=== PATIENT | male | born 1990 | race American Indian/Alaskan Native ===

== ENCOUNTER 2019-01-20 01:29 | Emergency (ER) | payer SELFPAY ==
[2019-01-20 03:44] VITALS: BP 162/114
[2019-01-20 05:03] LABS: Bilirubin,Urine NEG (Negative); Blood,Urine NEG (Negative); Color,Urine Yellow (Yellow); Hyaline Casts,Urine 1 /LPF; Mucus,Urine FEW /HPF; Protein,Urine <15 mg/dL mg/dL (Negative); Urobilinogen,Urine < 2.0 mg/dL (<2.0)
[2019-01-20] MEDS ORDERED: XYLOCAINE 1% MPF 5 mL INFILTRATI ONE (06:58)
[2019-01-20] MEDS ORDERED: ROCEPHIN IM ONE (06:58)
[2019-01-20] MEDS ORDERED: ZITHROMAX PO ONE (06:58)
--- NOTE | 2019-01-20 07:00 | Emergency Department Report ---
ED Male HPI - General Chief complaint: Urogenital-Male Stated complaint: POSS STD/BURNING/DISCHARGE Source: patient Mode of arrival: Ambulatory Limitations: No Limitations - History of Present Illness Initial comments: A 8-year-old -[place] male presents to the emergency room for burning with urination and yellow discharge from penis times one week. Patient states p ossible STD. Patient denies any fever or chills or nausea no vomiting has admitted to suprapubic pain when he urinates. He does admit to unprotected sex with women last 6 months to partners. Patient reports that his last HIV test was less than 6 months ago and negative. Patient has no past medical history except elevated blood pressure without diagnosis of hypertension. Patient denies taking any medications and reports is allergic to iodine. MD Complaint: penile discharge -: week(s) (1) Radiation: none Severity scale (0 -10): 4 Quality: burning Consistency: intermittent Improves with: none Worsens with: urination new sexual partner (unprotected intercourse) discharge, dysuria. denies: swelling, blood in urine, fever, nausea/vomiting, incontinence - Related Data Sexually active: Yes (women 2 partners unprotected) Previous Rx's Medication Instructions Recorded Last Taken Type ALBUTEROL Inhaler (OR & NICU) 2 puff IH QID PRN 30 Days 05/11/14 Unknown Rx [ProAir HFA Inhaler] inhalation Amoxicillin [Trimox CAP] 500 mg PO TID #30 capsule 05/11/14 Unknown Rx predniSONE [Deltasone] 15 mg PO .TAPER #21 tab 05/11/14 Unknown Rx Doxycycline [Vibramycin CAP] 100 mg PO Q12HR #10 capsule 01/20/19 Unknown Rx Allergies Allergy/AdvReac Type Severity Reaction Status Date / Time iodine Allergy Swelling Verified 01/20/19 01:51 shellfish derived Allergy Rash Verified 05/11/14 15:21 shrimp Allergy Shortness Uncoded 05/11/14 15:21 of Breath ED Review of Systems ROS: Stated complaint: POSS STD/BURNING/DISCHARGE Other details as noted in HPI Comment: All other systems reviewed and negative Constitutional: denies: chills, fever Eyes: denies: eye pain, eye discharge, vision change ENT: denies: ear pain, throat pain Genitourinary: dysuria, discharge ED Past Medical Hx - Past Medical History Previous Medical History?: Yes Hx Hypertension: Yes - Surgical History Past Surgical History?: Yes Additional Surgical History: [place] tooth removed - Social History Smoking Status: Current Every Day Smoker Substance Use Type: Alcohol - Medications Home Medications: Home Medications Medication Instructions Recorded Confirmed Last Taken Type ALBUTEROL Inhaler (OR & NICU) 2 puff IH QID PRN 30 Days 05/11/14 Unknown Rx [ProAir HFA Inhaler] inhalation Amoxicillin [Trimox CAP] 500 mg PO TID #30 capsule 05/11/14 Unknown Rx predniSONE [Deltasone] 15 mg PO .TAPER #21 tab 05/11/14 Unknown Rx Doxycycline [Vibramycin CAP] 100 mg PO Q12HR #10 capsule 01/20/19 Unknown Rx ED Physical Exam - General Limitations: No Limitations General appearance: alert, in no apparent distress - Head Head exam: Present: atraumatic, normocephalic - Eye Eye exam: Present: normal appearance - ENT ENT exam: Present: mucous membranes moist - Cardiovascular Cardiovascular Exam: Present: regular rate, normal rhythm. Absent: systolic murmur, diastolic murmur, rubs, gallop - GI/Abdominal GI/Abdominal exam: Present: soft, normal bowel sounds - Extremities Exam Extremities exam: Present: normal inspection - Back Exam Back exam: Present: full ROM - Neurological Exam Neurological exam: Present: alert, oriented X3, normal gait - Psychiatric Psychiatric exam: Present: normal affect, normal mood - Skin Skin exam: Present: warm, dry, intact, normal color. Absent: rash ED Course Vital Signs 01/20/19 01:45 Temperature 98.2 F Pulse Rate 84 Respiratory 18 Rate Blood Pressure 162/114 O2 Sat by Pulse 98 Oximetry ED Medical Decision Making - Medical Decision Making Patient has been evaluated by this provider in fast track. Patient will be treated with Rocephin 250 mg IM and azithromycin 1 g by mouth for empirical STDs. I discussed the patient he needs to follow up at [facility] for further evaluation and treatment. Patient verbalized understanding Critical care attestation.: If time is entered above; I have spent that time in minutes in the direct care of this critically ill patient, excluding procedure time. ED Disposition Clinical Impression: Abnormal penile discharge, STD (male) Disposition: DC-01 TO HOME OR SELFCARE Is pt being admited?: No Does the pt Need Aspirin: No Condition: Stable Instructions: Safe Sex (ED), Sexually Transmitted Diseases (ED) Additional Instructions: Please follow up at the health department for further evaluation of STDs such as HIV, hepatitis, syphilis, herpes. Please complete antibiotics as prescribed. Prescriptions: Doxycycline [Vibramycin CAP] 100 mg PO Q12HR #10 capsule Referrals: BEKA CHA MD [Primary Care Provider] - 3-5 Days Forms: Work/School Release Form(ED)
== END 2019-01-20 07:34 | disposition home or self-care (01) ==
LOC: ED 01:29
DX: R36.9 Urethral discharge, unspecified (principal); I10 Essential (primary) hypertension; F17.200 Nicotine dependence, unspecified, uncomplicated; Z91.013 Allergy to seafood; Z91.041 Radiographic dye allergy status
CPT/HCPCS: 81001; 87086; 96372; 99283; J0696

== ENCOUNTER 2019-02-28 02:36 | Emergency (ER) | payer SELFPAY ==
[2019-02-28 03:42] VITALS: BP 160/111
[2019-02-28] MEDS ORDERED: ROCEPHIN IM ONE (05:40)
[2019-02-28] MEDS ORDERED: ZITHROMAX PO ONE (05:40)
[2019-02-28] MEDS ORDERED: XYLOCAINE 1% MPF 5 mL INFILTRATI ONE (05:40)
--- NOTE | 2019-02-28 05:46 | Emergency Department Report ---
ED Male HPI - General Chief complaint: Urogenital-Male Stated complaint: BURNING IN URINATION/DISCHARGE Time Seen by Provider: 02/28/19 05:39 Source: patient Mode of arrival: Ambulatory Limitations: No Limitations - History of Present Illness Initial comments: Patient is a 28-year-old -[place] male who presents for STD exposure no discharge white thick . Dysuria frequency and urgency there is no fever chills no abdominal pain no back pain no open sores or lesions Complaint: dysuria Onset/Timin -: Gradual, days(s) Location: penis Radiation: jaw Severity: moderate Severity scale (0 -10): 5 Quality: burning Consistency: constant Improves with: none Worsens with: none new medication discharge, dysuria. denies: swelling, mass, rash, blood in urine, fever, nausea/vomiting, incontinence - Related Data Sexually active: No Previous Rx's Medication Instructions Recorded Last Taken Type ALBUTEROL Inhaler (OR & NICU) 2 puff IH QID PRN 30 Days 05/11/14 Unknown Rx [ProAir HFA Inhaler] inhalation Amoxicillin [Trimox CAP] 500 mg PO TID #30 capsule 05/11/14 Unknown Rx predniSONE [Deltasone] 15 mg PO .TAPER #21 tab 05/11/14 Unknown Rx Doxycycline [Vibramycin CAP] 100 mg PO Q12HR #10 capsule 01/20/19 Unknown Rx Doxycycline [Vibramycin CAP] 100 mg PO Q12HR 10 Days #20 capsule 02/28/19 Unknown Rx Allergies Allergy/AdvReac Type Severity Reaction Status Date / Time iodine Allergy Swelling Verified 01/20/19 01:51 shellfish derived Allergy Rash Verified 05/11/14 15:21 shrimp Allergy Shortness Uncoded 05/11/14 15:21 of Breath ED Review of Systems ROS: Stated complaint: BURNING IN URINATION/DISCHARGE Other details as noted in HPI Constitutional: denies: chills, fever Eyes: denies: eye pain, eye discharge, vision change ENT: denies: ear pain, throat pain Respiratory: denies: cough, shortness of breath, wheezing Cardiovascular: denies: chest pain, palpitations Endocrine: no symptoms reported Gastrointestinal: abdominal pain, nausea. denies: diarrhea Genitourinary: urgency, dysuria, frequency, discharge, other. denies: hematuria, testicular pain, testicular mass Musculoskeletal: denies: back pain, joint swelling, arthralgia Skin: denies: rash, lesions Neurological: denies: headache, weakness, paresthesias Psychiatric: denies: anxiety, depression Hematological/Lymphatic: denies: easy bleeding, easy bruising ED Past Medical Hx - Past Medical History Previous Medical History?: Yes Hx Hypertension: Yes Hx Deep Vein Thrombosis: No Hx Pulmonary Embolism: No Hx GERD: No Hx Arthritis: No Hx Seizures: No Hx Kidney Stones: No Hx Psychiatric Treatment: No Hx Asthma: No Hx COPD: No Hx Tuberculosis: No Hx Dementia: No Hx HIV: No - Surgical History Past Surgical History?: No Additional Surgical History: [place] tooth removed - Social History Smoking Status: Current Every Day Smoker Substance Use Type: None - Medications Home Medications: Home Medications Medication Instructions Recorded Confirmed Last Taken Type ALBUTEROL Inhaler (OR & NICU) 2 puff IH QID PRN 30 Days 05/11/14 Unknown Rx [ProAir HFA Inhaler] inhalation Amoxicillin [Trimox CAP] 500 mg PO TID #30 capsule 05/11/14 Unknown Rx predniSONE [Deltasone] 15 mg PO .TAPER #21 tab 05/11/14 Unknown Rx Doxycycline [Vibramycin CAP] 100 mg PO Q12HR #10 capsule 01/20/19 Unknown Rx Doxycycline [Vibramycin CAP] 100 mg PO Q12HR 10 Days #20 capsule 02/28/19 Unknown Rx ED Physical Exam - General Limitations: No Limitations General appearance: alert, in no apparent distress - Head Head exam: Present: atraumatic, normocephalic - Eye Eye exam: Present: normal appearance, PERRL, EOMI Pupils: Present: normal accommodation - ENT ENT exam: Present: normal exam, mucous membranes moist, TM's normal bilaterally, normal external ear exam - Neck Neck exam: Present: normal inspection, full ROM. Absent: tenderness, meningismus, lymphadenopathy (L) - Expanded Neck Exam Expanded Neck exam: Present: tenderness, thyroid mass, carotid bruit. Absent: midline deformity, anterior neck swelling, tracheal deviation - Respiratory Respiratory exam: Present: normal lung sounds bilaterally. Absent: respiratory distress, wheezes, stridor, chest wall tenderness - Cardiovascular Cardiovascular Exam: Present: regular rate, normal rhythm, normal heart sounds. Absent: systolic murmur, diastolic murmur, rubs, gallop - GI/Abdominal GI/Abdominal exam: Present: soft, normal bowel sounds, hypoactive bowel sounds. Absent: distended, tenderness, guarding, rebound, rigid, mass, bruit, pulsatile mass - Rectal Rectal exam: Present: deferred, normal inspection, normal rectal tone, black stool, normal prostate - exam: Present: normal inspection, urethral discharge. Absent: testicular ten derness, scrotal swelling, vertical testicular lie, circumcision - Extremities Exam Extremities exam: Present: normal inspection, full ROM, normal capillary refill. Absent: tenderness, pedal edema, joint swelling, calf tenderness - Back Exam Back exam: Present: normal inspection, full ROM, tenderness, muscle spasm. Abs ent: CVA tenderness (R), CVA tenderness (L), paraspinal tenderness, vertebral tenderness, other - Neurological Exam Neurological exam: Present: alert, oriented X3, CN II-XII intact, normal gait, reflexes normal - Psychiatric Psychiatric exam: Present: normal affect, normal mood, flat affect - Skin Skin exam: Present: warm, dry, intact, normal color. Absent: rash ED Course Vital Signs 02/28/19 03:35 Temperature 98 F Pulse Rate 88 Respiratory 16 Rate Blood Pressure 160/111 O2 Sat by Pulse 97 Oximetry ED Medical Decision Making - EKG Data EKG shows normal: sinus rhythm, axis, intervals, QRS complexes, ST-T waves Rate: normal, tachycardia, bradycardia - EKG Data When compared to previous EKG there are: previous EKG unavailable Interpretation: no acute changes, normal EKG - Radiology Data Radiology results: pending, report reviewed, image reviewed - Medical Decision Making this is a STD tx d with rocephin and flagyl po dc to home with rx for doxcyling pt verbalized agreement understanding of same ,. dc to home in satable condition at this time Critical Care Time: No Critical care attestation.: If time is entered above; I have spent that time in minutes in the direct care of this critically ill patient, excluding procedure time. ED Disposition Clinical Impression: STD exposure Disposition: DC-01 TO HOME OR SELFCARE Is pt being admited?: No Does the pt Need Aspirin: No Condition: Good Instructions: Sexually Transmitted Diseases (ED) Prescriptions: Doxycycline [Vibramycin CAP] 100 mg PO Q12HR 10 Days #20 capsule Referrals: BEKA CHA MD [Primary Care Provider] - 3-5 Days Forms: Work/School Release Form(ED), Accompanied Note
== END 2019-02-28 06:50 | disposition home or self-care (01) ==
LOC: ED 02:36
DX: A64 Unspecified sexually transmitted disease (principal); I10 Essential (primary) hypertension; F17.200 Nicotine dependence, unspecified, uncomplicated; Z79.899 Other long term (current) drug therapy; Z91.013 Allergy to seafood; Z91.018 Allergy to other foods
CPT/HCPCS: 96372; 99282; J0696